=== PATIENT | female | born 1935 | race Caucasian/White ===

== ENCOUNTER 2018-04-13 11:33 | Inpatient (IN) | payer MEDICARE, OTHER ==
[~2018-04-13] VITALS: Ht 165.1 cm; Wt 53.0 kg
[~2018-04-13 11:33] MED LIST: AMIT50TA3 PO; DONE-46 PO; LORA-269 PO; MIRT7.5T11 PO; NITR-79 PO; TRIA0.2585 PO
[2018-04-13] MEDS ORDERED: ondansetron/PF 4mg/2ml inj IV ONE (12:50)
[2018-04-13] MEDS: morphine 4 MG/ML inj SYRINge IV ONE ×2 (13:01→13:05)
[2018-04-13] MEDS ORDERED: morphine 4 MG/ML inj SYRINge IV ONE (13:05)
[2018-04-13 13:19] LABS: BASOPHILS % (AUTO) 0 % (0-1); EOSINOPHILS # (AUTO) 0.3 X10'3 (0-0.9); EOSINOPHILS % (AUTO) 1.8 % (0-6); HEMOGLOBIN 11.4 g/dl (12.0-16.0); LYMPHOCYTES # (AUTO) 0.8 X10'3 (1.1-4.8); LYMPHOCYTES % (AUTO) 5.4 % (21-51); MEAN CORPUSCULAR HEMOGLOBIN 26.6 PG (27.0-31.0); MEAN CORPUSCULAR HGB CONC 32.5 % (33.0-36.5); MEAN PLATELET VOLUME 7.5 FL (7.4-10.4); MONOCYTES # (AUTO) 0.6 X10'3 (0-0.9); MONOCYTES % (AUTO) 4.5 % (2-12); NEUTROPHILS # (AUTO) 12.3 X10'3 (1.8-7.7); NEUTROPHILS % (AUTO) 88.3 % (42-75); PLATELET COUNT 287 X10'3 (140-440); RED BLOOD COUNT 4.27 X10'6 (4.20-5.60); WHITE BLOOD COUNT 13.9 X10'3 (4.5-11.0)
[2018-04-13 13:30] LABS: PARTIAL THROMBOPLASTIN TIME 29 SECONDS (22-32); PROTHROMBIN TIME 10.5 SECONDS (9.0-12.0)
[2018-04-13 13:34] LABS: ALANINE AMINOTRANSFERASE 20 U/L (12-78); ALBUMIN/GLOBULIN RATIO 0.9 (1.1-1.5); ALKALINE PHOSPHATASE 133 IU/L (46-116); ANION GAP 10 (8-16); ASPARTATE AMINO TRANSFERASE 23 U/L (10-37); BILIRUBIN,TOTAL 0.5 MG/DL (0.1-1.0); BLOOD UREA NITROGEN 9 MG/DL (7-18); CALCIUM 9.3 MG/DL (8.5-10.1); CHLORIDE 103 MMOL/L (99-107); GLUCOSE 107 MG/DL (70-104); POTASSIUM 3.7 MMOL/L (3.5-5.1); SODIUM 140 MMOL/L (135-145); TOTAL CARBON DIOXIDE 27.1 MMOL/L (24-32); TOTAL PROTEIN 6.5 G/DL (6.4-8.2); eGFR 53 ML/MIN
[2018-04-13] MEDS ORDERED: morphine 4 MG/ML inj SYRINge IV PRN (14:10)
[2018-04-13] MEDS ORDERED: acetaminophen 325mg tablet PO PRN ×2 (14:35)
[2018-04-13] MEDS ORDERED: magnesium Cl slow-release 64mg tablet PO PRN (14:35)
[2018-04-13] MEDS ORDERED: magnesium 4gm in 100ml NS 100 ML IV PRN (14:35)
[2018-04-13] MEDS ORDERED: morphine 2 MG/ML inj. syringe IV PRN (14:35)
[2018-04-13] MEDS ORDERED: ondansetron/PF 4mg/2ml inj IV PRN (14:35)
[2018-04-13] MEDS ORDERED: potassium Cl 20 mEq SR tablet PO PRN ×2 (14:35)
[2018-04-13] MEDS ORDERED: mag hydrox/Alum hydrox/simeth 30ml oral suspension PO PRN (14:35)
[2018-04-13] MEDS ORDERED: docusate sod 100mg capsule PO PRN (14:35)
[2018-04-13] MEDS ORDERED: potassium Cl 40MEQ/NS 500ml 500 ML IV PRN ×2 (14:35)
[2018-04-13] MEDS ORDERED: magnesium 1gm/100ml D5W IVPB 100 ML IV PRN (14:35)
[2018-04-13] MEDS: normal saline 1000ml 1,000 ML IV SCH (15:18)
[2018-04-13 15:39] LABS: CLARITY,URINE CLEAR (Clear); COLOR,URINE YELLOW (Yellow); GLUCOSE, URINE NEGATIVE (Neg); KETONES,URINE NEGATIVE (Neg); LEUKOCYTE ESTERASE ,URINE NEGATIVE (Neg); NITRITES, URINE NEGATIVE (Neg); OCCULT BLOOD,URINE SMALL (Neg); PROTEIN,URINE NEGATIVE (Neg); UROBILINOGEN,URINE 0.2 E.U/dL (0.2-1.0)
[2018-04-13] MEDS ORDERED: BUSP5TAB3 PO (15:45)
[2018-04-13] MEDS ORDERED: trintellix PO (15:45)
[2018-04-13] MEDS ORDERED: DOXE50CA4 PO (15:45)
[2018-04-13 15:46] LABS: UA COLLECTION TYPE FOLEY CATH
[2018-04-13 15:48] LABS: MUCUS STRANDS FEW /LPF (Neg); SQUAMOUS EPITHELIAL CELL,UR FEW /LPF (FEW)
[2018-04-13 15:49] LABS: BACTERIA,URINE NONE SEEN /HPF (Neg); RBC,URINE 0-2 /HPF (0-2); WBC,URINE 0-4 /HPF (0-4)
[2018-04-13 16:00] VITALS: BP 152/54
[2018-04-13 18:00] VITALS: BP 137/55
[2018-04-13] MEDS: heparin, porcine 5000 units/ml vial SQ SCH (19:33)
[2018-04-13] MEDS: morphine 2 MG/ML inj. syringe IV PRN ×2 (19:34→23:34)
[2018-04-13 22:00] VITALS: BP 135/46
[2018-04-14] VITALS (18 sets, daily range): BP systolic 102–146; BP diastolic 42–71
[2018-04-14] MEDS ORDERED: baclofen 10mg tablet PO PRN (00:45)
[2018-04-14] MEDS: normal saline 1000ml 1,000 ML IV SCH ×3 (03:58→21:55)
[2018-04-14] MEDS: morphine 2 MG/ML inj. syringe IV PRN ×3 (05:02→16:26)
[2018-04-14 05:12] LABS: BASOPHILS % (AUTO) 0 % (0-1); EOSINOPHILS # (AUTO) 0.2 X10'3 (0-0.9); EOSINOPHILS % (AUTO) 2.3 % (0-6); HEMATOCRIT 28.3 % (35.0-45.0); HEMOGLOBIN 9.3 g/dl (12.0-16.0); LYMPHOCYTES # (AUTO) 1.1 X10'3 (1.1-4.8); LYMPHOCYTES % (AUTO) 16.1 % (21-51); MEAN CORPUSCULAR HEMOGLOBIN 26.8 PG (27.0-31.0); MEAN CORPUSCULAR HGB CONC 32.7 % (33.0-36.5); MEAN CORPUSCULAR VOLUME 81.7 FL (78-98); MEAN PLATELET VOLUME 7.7 FL (7.4-10.4); MONOCYTES # (AUTO) 0.6 X10'3 (0-0.9); NEUTROPHILS % (AUTO) 72.6 % (42-75); PLATELET COUNT 227 X10'3 (140-440); RED BLOOD COUNT 3.46 X10'6 (4.20-5.60); RED CELL DISTRIBUTION WIDTH 14.6 % (11.5-14.5); WHITE BLOOD COUNT 6.9 X10'3 (4.5-11.0)
[2018-04-14 05:30] LABS: ALBUMIN 2.2 G/DL (3.4-5.0); ANION GAP 8 (8-16); BLOOD UREA NITROGEN 7 MG/DL (7-18); BUN/CREATININE RATIO 8.1 (6.6-38.0); CALCIUM 8.1 MG/DL (8.5-10.1); CHLORIDE 107 MMOL/L (99-107); CREATININE 0.86 MG/DL (0.40-0.90); GLUCOSE 89 MG/DL (70-104); MAGNESIUM 1.8 MG/DL (1.5-2.4); POTASSIUM 3.9 MMOL/L (3.5-5.1); SODIUM 141 MMOL/L (135-145); TOTAL CARBON DIOXIDE 26.5 MMOL/L (24-32); eGFR 63 ML/MIN
[2018-04-14] MEDS: K and/or MAG REPLACEMENT MC SCH (08:00)
[2018-04-14] MEDS ORDERED: donepezil 5mg tablet PO SCH (08:00)
[2018-04-14] MEDS: heparin, porcine 5000 units/ml vial SQ SCH ×2 (08:00→19:38)
[2018-04-14] MEDS ORDERED: fentaNYL/PF 50MCG/1 ML 2ML syringe ONE (12:44)
[2018-04-14] MEDS ORDERED: ePHEDrine 50MG/ML INJ. ONE (13:09)
[2018-04-14] MEDS ORDERED: propofol inj 20 ML IV ONE (13:09)
[2018-04-14] MEDS ORDERED: BUPIVAcaine/dex-water/PF 7.5 mg/ml 2ml ampul ONE (13:31)
[2018-04-14] MEDS ORDERED: ringers solution, lacted 1,000 ML IV SCH (13:42)
[2018-04-14] MEDS ORDERED: morphine 4 MG/ML inj SYRINge IV PRN ×2 (13:45)
[2018-04-14] MEDS ORDERED: proCHLORperazine 10 MG/2 ml inj IV PRN (13:45)
[2018-04-14] MEDS ORDERED: ondansetron/PF 4mg/2ml inj IV PRN (13:45)
[2018-04-14] MEDS ORDERED: meperidine/PF 25mg/ml syringe IV PRN ×3 (13:45)
[2018-04-14] MEDS ORDERED: ketorolac tromethamine 15mg/ml inj. IV ONE (17:20)
[2018-04-14] MEDS: ceFAZolin 1GM/D5W- ADD-VANTAGE 50 ML IV SCH (17:20)
[2018-04-14] MEDS: HYDROcodone/acetaminophen 10/325mg tab PO PRN (17:20)
[2018-04-14] MEDS: HYDROcodone/acetaminophen 5mg/325mg tablet PO PRN (21:54)
[2018-04-15] VITALS (9 sets, daily range): BP systolic 103–130; BP diastolic 36–50
[2018-04-15] MEDS: ceFAZolin 1GM/D5W- ADD-VANTAGE 50 ML IV SCH (00:36)
[2018-04-15] MEDS: HYDROcodone/acetaminophen 10/325mg tab PO PRN ×4 (04:09→19:54)
[2018-04-15 06:02] LABS: BASOPHILS % (AUTO) 0.2 % (0-1); EOSINOPHILS # (AUTO) 0.1 X10'3 (0-0.9); EOSINOPHILS % (AUTO) 2.3 % (0-6); HEMOGLOBIN 7.1 g/dl (12.0-16.0); LYMPHOCYTES # (AUTO) 0.8 X10'3 (1.1-4.8); LYMPHOCYTES % (AUTO) 13.9 % (21-51); MEAN CORPUSCULAR HEMOGLOBIN 26.9 PG (27.0-31.0); MEAN CORPUSCULAR HGB CONC 33.3 % (33.0-36.5); MEAN CORPUSCULAR VOLUME 80.8 FL (78-98); MEAN PLATELET VOLUME 7.8 FL (7.4-10.4); MONOCYTES # (AUTO) 0.5 X10'3 (0-0.9); MONOCYTES % (AUTO) 8.5 % (2-12); NEUTROPHILS # (AUTO) 4.6 X10'3 (1.8-7.7); NEUTROPHILS % (AUTO) 75.1 % (42-75); PLATELET COUNT 216 X10'3 (140-440); RED BLOOD COUNT 2.64 X10'6 (4.20-5.60); WHITE BLOOD COUNT 6.1 X10'3 (4.5-11.0)
[2018-04-15 06:13] LABS: HEMATOCRIT 21.4 % (35.0-45.0)
[2018-04-15 06:17] LABS: ALBUMIN 1.9 G/DL (3.4-5.0); ANION GAP 5 (8-16); BLOOD UREA NITROGEN 9 MG/DL (7-18); CALCIUM 8.1 MG/DL (8.5-10.1); CHLORIDE 108 MMOL/L (99-107); GLUCOSE 110 MG/DL (70-104); MAGNESIUM 1.7 MG/DL (1.5-2.4); POTASSIUM 3.9 MMOL/L (3.5-5.1); SODIUM 140 MMOL/L (135-145); TOTAL CARBON DIOXIDE 27.3 MMOL/L (24-32); eGFR 60 ML/MIN
[2018-04-15] MEDS: heparin, porcine 5000 units/ml vial SQ SCH ×2 (08:00→19:52)
[2018-04-15] MEDS: K and/or MAG REPLACEMENT MC SCH (08:00)
[2018-04-15] MEDS: normal saline 1000ml 1,000 ML IV SCH (14:57)
[2018-04-15] MEDS: morphine 2 MG/ML inj. syringe IV PRN (21:56)
[2018-04-16] MEDS: HYDROcodone/acetaminophen 10/325mg tab PO PRN ×2 (02:54→09:05)
[2018-04-16] MEDS: normal saline 1000ml 1,000 ML IV SCH (02:56)
[2018-04-16] MEDS: morphine 2 MG/ML inj. syringe IV PRN ×2 (05:48→21:41)
[2018-04-16 06:00] VITALS: BP 115/49
[2018-04-16] MEDS: K and/or MAG REPLACEMENT MC SCH (08:30)
[2018-04-16] MEDS: heparin, porcine 5000 units/ml vial SQ SCH ×2 (09:07→20:00)
[2018-04-16 09:11] LABS: BASOPHILS % (AUTO) 0.3 % (0-1); EOSINOPHILS # (AUTO) 0.3 X10'3 (0-0.9); EOSINOPHILS % (AUTO) 4.8 % (0-6); HEMATOCRIT 24.4 % (35.0-45.0); LYMPHOCYTES # (AUTO) 1.1 X10'3 (1.1-4.8); LYMPHOCYTES % (AUTO) 20.2 % (21-51); MEAN CORPUSCULAR HEMOGLOBIN 26.7 PG (27.0-31.0); MEAN CORPUSCULAR HGB CONC 32.7 % (33.0-36.5); MEAN CORPUSCULAR VOLUME 81.7 FL (78-98); MEAN PLATELET VOLUME 7.5 FL (7.4-10.4); MONOCYTES # (AUTO) 0.4 X10'3 (0-0.9); MONOCYTES % (AUTO) 6.3 % (2-12); NEUTROPHILS # (AUTO) 3.8 X10'3 (1.8-7.7); NEUTROPHILS % (AUTO) 68.4 % (42-75); PLATELET COUNT 247 X10'3 (140-440); RED BLOOD COUNT 2.99 X10'6 (4.20-5.60); RED CELL DISTRIBUTION WIDTH 15.8 % (11.5-14.5); WHITE BLOOD COUNT 5.6 X10'3 (4.5-11.0)
[2018-04-16 09:28] LABS: ALBUMIN 1.9 G/DL (3.4-5.0); ANION GAP 5 (8-16); BLOOD UREA NITROGEN 8 MG/DL (7-18); BUN/CREATININE RATIO 11.6 (6.6-38.0); CALCIUM 8.1 MG/DL (8.5-10.1); CHLORIDE 109 MMOL/L (99-107); CREATININE 0.69 MG/DL (0.40-0.90); GLUCOSE 124 MG/DL (70-104); MAGNESIUM 1.7 MG/DL (1.5-2.4); POTASSIUM 3.3 MMOL/L (3.5-5.1); SODIUM 141 MMOL/L (135-145); TOTAL CARBON DIOXIDE 26.8 MMOL/L (24-32); eGFR 81 ML/MIN
[2018-04-16 10:00] VITALS: BP 118/56
[2018-04-16] MEDS: HYDROcodone/acetaminophen 5mg/325mg tablet PO PRN ×2 (15:38→19:59)
[2018-04-16 18:00] VITALS: BP 105/54
[2018-04-16 22:00] VITALS: BP 127/48
[2018-04-17] VITALS (10 sets, daily range): BP systolic 100–185; BP diastolic 47–72
[2018-04-17] MEDS: HYDROcodone/acetaminophen 5mg/325mg tablet PO PRN ×4 (02:40→20:37)
[2018-04-17 05:58] LABS: BASOPHILS % (AUTO) 0.5 % (0-1); EOSINOPHILS # (AUTO) 0.3 X10'3 (0-0.9); EOSINOPHILS % (AUTO) 5.6 % (0-6); HEMOGLOBIN 7.3 g/dl (12.0-16.0); LYMPHOCYTES # (AUTO) 1.1 X10'3 (1.1-4.8); LYMPHOCYTES % (AUTO) 19.6 % (21-51); MEAN CORPUSCULAR HEMOGLOBIN 26.9 PG (27.0-31.0); MEAN CORPUSCULAR HGB CONC 33.2 % (33.0-36.5); MEAN CORPUSCULAR VOLUME 81.1 FL (78-98); MEAN PLATELET VOLUME 7.4 FL (7.4-10.4); MONOCYTES # (AUTO) 0.4 X10'3 (0-0.9); MONOCYTES % (AUTO) 7.3 % (2-12); NEUTROPHILS # (AUTO) 3.6 X10'3 (1.8-7.7); PLATELET COUNT 255 X10'3 (140-440); RED CELL DISTRIBUTION WIDTH 15.4 % (11.5-14.5); WHITE BLOOD COUNT 5.4 X10'3 (4.5-11.0)
[2018-04-17 06:05] LABS: HEMATOCRIT 21.9 % (35.0-45.0)
[2018-04-17 06:18] LABS: ALBUMIN 1.8 G/DL (3.4-5.0); ANION GAP 7 (8-16); BLOOD UREA NITROGEN 8 MG/DL (7-18); BUN/CREATININE RATIO 11.3 (6.6-38.0); CALCIUM 8.3 MG/DL (8.5-10.1); CHLORIDE 111 MMOL/L (99-107); CREATININE 0.71 MG/DL (0.40-0.90); GLUCOSE 94 MG/DL (70-104); MAGNESIUM 1.6 MG/DL (1.5-2.4); POTASSIUM 3.6 MMOL/L (3.5-5.1); SODIUM 143 MMOL/L (135-145); TOTAL CARBON DIOXIDE 25.3 MMOL/L (24-32); eGFR 78 ML/MIN
[2018-04-17] MEDS: normal saline 1000ml 1,000 ML IV SCH ×2 (06:32→11:54)
[2018-04-17] MEDS: K and/or MAG REPLACEMENT MC SCH (08:00)
[2018-04-17] MEDS: heparin, porcine 5000 units/ml vial SQ SCH (08:57)
[2018-04-17] MEDS ORDERED: LORazepam 1 MG tablet PO PRN (09:40)
[2018-04-17] MEDS ORDERED: DONE5TAB7 PO (11:07)
[2018-04-17] MEDS ORDERED: LORA0.5T PO (11:07)
[2018-04-17] MEDS ORDERED: BUSP10TA11 PO (11:07)
[2018-04-17] MEDS ORDERED: DOXE25CA3 (11:07)
[2018-04-17] MEDS ORDERED: non-formulary drug (Buspirone Hcl* (Buspar*) 1 TAB) PO PRN (13:40)
[2018-04-17] MEDS ORDERED: LORazepam 0.5 MG tablet PO PRN (13:40)
[2018-04-17] MEDS ORDERED: busPIRone 5mg tablet PO PRN (13:45)
[2018-04-17] MEDS ORDERED: magnesium hydroxide 30ml (MOM) UD suspension PO PRN (18:05)
[2018-04-17] MEDS ORDERED: busPIRone 5mg tablet PO SCH (21:00)
[2018-04-17] MEDS ORDERED: TRIAZOLAM PO SCH (21:00)
[2018-04-17] MEDS ORDERED: doxepin 25mg capsule PO SCH (21:00)
[2018-04-17] MEDS ORDERED: temazepam 15mg capsule PO SCH (21:00)
[2018-04-18] MEDS: HYDROcodone/acetaminophen 5mg/325mg tablet PO PRN ×4 (00:27→13:01)
[2018-04-18 04:59] LABS: BASOPHILS % (AUTO) 0.5 % (0-1); EOSINOPHILS # (AUTO) 0.3 X10'3 (0-0.9); EOSINOPHILS % (AUTO) 4.7 % (0-6); HEMATOCRIT 30.2 % (35.0-45.0); HEMOGLOBIN 10.3 g/dl (12.0-16.0); LYMPHOCYTES # (AUTO) 1.2 X10'3 (1.1-4.8); MEAN CORPUSCULAR HEMOGLOBIN 27.8 PG (27.0-31.0); MEAN CORPUSCULAR VOLUME 81.9 FL (78-98); MONOCYTES # (AUTO) 0.5 X10'3 (0-0.9); MONOCYTES % (AUTO) 8.7 % (2-12); NEUTROPHILS # (AUTO) 3.8 X10'3 (1.8-7.7); NEUTROPHILS % (AUTO) 66.1 % (42-75); PLATELET COUNT 282 X10'3 (140-440); RED BLOOD COUNT 3.68 X10'6 (4.20-5.60); RED CELL DISTRIBUTION WIDTH 15.6 % (11.5-14.5); WHITE BLOOD COUNT 5.8 X10'3 (4.5-11.0)
[2018-04-18 05:36] LABS: ANION GAP 10 (8-16); BLOOD UREA NITROGEN 8 MG/DL (7-18); BUN/CREATININE RATIO 11.4 (6.6-38.0); CALCIUM 8.3 MG/DL (8.5-10.1); CHLORIDE 111 MMOL/L (99-107); GLUCOSE 84 MG/DL (70-104); MAGNESIUM 1.6 MG/DL (1.5-2.4); POTASSIUM 3.1 MMOL/L (3.5-5.1); SODIUM 146 MMOL/L (135-145); TOTAL CARBON DIOXIDE 25.3 MMOL/L (24-32); eGFR 80 ML/MIN
[2018-04-18 06:00] VITALS: BP 163/62
[2018-04-18] MEDS ORDERED: donepezil 5mg tablet PO SCH (08:00)
[2018-04-18] MEDS ORDERED: voritoxetine HBr tablet 5 MG TABLET PO SCH (08:00)
[2018-04-18] MEDS ORDERED: TRINTELLIX 5 MG PO SCH (08:00)
[2018-04-18] MEDS ORDERED: magnesium Cl slow-release 64mg tablet PO PRN (09:10)
[2018-04-18] MEDS ORDERED: potassium Cl 40MEQ/NS 500ml 500 ML IV PRN ×2 (09:10)
[2018-04-18] MEDS ORDERED: potassium Cl 20 mEq SR tablet PO PRN (09:10)
[2018-04-18] MEDS: potassium Cl 20 mEq SR tablet PO PRN ×2 (09:17→15:27)
[2018-04-18 10:00] VITALS: BP 97/64
== END 2018-04-18 15:45 | DRG 481 ==
LOC: ER 11:33 → ED HOLD 14:34 → ORTHO 4S 15:55
PROVIDERS: ADMIT Internal Medicine; ATTEND Family Medicine
PROC: 0QS636Z Reposition Right Upper Femur with Intramedullary Internal Fixation Device, Percutaneous Approach (ICD-10-PCS; principal; 2018-04-14 12:34)
PROC: 30233N1 Transfusion of Nonautologous Red Blood Cells into Peripheral Vein, Percutaneous Approach (ICD-10-PCS; 2018-04-15)
PROC: 30233N1 Transfusion of Nonautologous Red Blood Cells into Peripheral Vein, Percutaneous Approach (ICD-10-PCS; 2018-04-17)
DX: S72.141A Displaced intertrochanteric fracture of right femur, initial encounter for closed fracture (principal); D62 Acute posthemorrhagic anemia; E46 Unspecified protein-calorie malnutrition; Z68.1 Body mass index [BMI] 19.9 or less, adult; F32.9 Major depressive disorder, single episode, unspecified; Z60.2 Problems related to living alone; F41.1 Generalized anxiety disorder; G47.00 Insomnia, unspecified; M16.0 Bilateral primary osteoarthritis of hip; M47.816 Spondylosis without myelopathy or radiculopathy, lumbar region; Z66 Do not resuscitate; W18.39XA Other fall on same level, initial encounter; Z79.899 Other long term (current) drug therapy; Y93.01 Activity, walking, marching and hiking; Y92.098 Other place in other non-institutional residence as the place of occurrence of the external cause; Y99.8 Other external cause status
CPT/HCPCS: 27495; 36415; 71045; 73502; 73552; 76001; 80048; 80053; 81001; 83735; 85025; 85610; 85730; 86885; 86900; 86901; 86920; 87070; 93005; 97110; 97116; 97162; 97530; A4315; A6212; A6222; A6255; A6257; A6449; A6454; A7000; J0690; J1644; J1885; J2270; J2405; J2704; J3010; J3490; J7030; J7120; P9016

== ENCOUNTER 2018-06-27 11:48 | Inpatient (IN) | payer MEDICARE, OTHER ==
[~2018-06-27] VITALS: Ht 165.1 cm; Wt 56.8 kg
[~2018-06-27 11:48] MED LIST changes: -AMIT50TA3 PO; +BUSP10TA11 PO; -DONE-46 PO; +DONE5TAB7 PO; +DOXE25CA3; -LORA-269 PO; +LORA0.5T PO; -MIRT7.5T11 PO; -NITR-79 PO; +trintellix PO
[2018-06-27] MEDS ORDERED: morphine 2 MG/ML inj. syringe IV ONE (13:10)
[2018-06-27] MEDS ORDERED: ondansetron/PF 4mg/2ml inj IV ONE (13:10)
[2018-06-27] MEDS ORDERED: VORT5TAB PO (14:12)
[2018-06-27 14:29] LABS: INR 1.1 INR; PROTHROMBIN TIME 11.4 SECONDS (9.0-12.0)
[2018-06-27 14:31] LABS: ALANINE AMINOTRANSFERASE 15 U/L (12-78); ALBUMIN 2.7 G/DL (3.4-5.0); ALBUMIN/GLOBULIN RATIO 0.8 (1.1-1.5); ALKALINE PHOSPHATASE 132 IU/L (46-116); ANION GAP 8 (8-16); ASPARTATE AMINO TRANSFERASE 20 U/L (10-37); BILIRUBIN,TOTAL 0.4 MG/DL (0.1-1.0); BLOOD UREA NITROGEN 10 MG/DL (7-18); BUN/CREATININE RATIO 13.2 (6.6-38.0); CALCIUM 8.9 MG/DL (8.5-10.1); CHLORIDE 103 MMOL/L (99-107); CREATININE 0.76 MG/DL (0.40-0.90); GLUCOSE 97 MG/DL (70-104); POTASSIUM 3.8 MMOL/L (3.5-5.1); SODIUM 140 MMOL/L (135-145); TOTAL CARBON DIOXIDE 28.7 MMOL/L (24-32); TOTAL PROTEIN 6.2 G/DL (6.4-8.2); eGFR 73 ML/MIN
[2018-06-27 14:49] LABS: BASOPHILS % (AUTO) 0.2 % (0-1); EOSINOPHILS # (AUTO) 0.1 X10'3 (0-0.9); EOSINOPHILS % (AUTO) 0.9 % (0-6); HEMATOCRIT 36.1 % (35.0-45.0); HEMOGLOBIN 12.3 g/dl (12.0-16.0); LYMPHOCYTES # (AUTO) 1.1 X10'3 (1.1-4.8); LYMPHOCYTES % (AUTO) 10.3 % (21-51); MEAN CORPUSCULAR HEMOGLOBIN 29.3 PG (27.0-31.0); MEAN PLATELET VOLUME 7.7 FL (7.4-10.4); MONOCYTES # (AUTO) 0.5 X10'3 (0-0.9); MONOCYTES % (AUTO) 4.9 % (2-12); NEUTROPHILS # (AUTO) 8.5 X10'3 (1.8-7.7); NEUTROPHILS % (AUTO) 83.7 % (42-75); PLATELET COUNT 324 X10'3 (140-440); RED CELL DISTRIBUTION WIDTH 15.1 % (11.5-14.5); WHITE BLOOD COUNT 10.2 X10'3 (4.5-11.0)
[2018-06-27] MEDS ORDERED: morphine 2 MG/ML inj. syringe IV PRN (15:10)
[2018-06-27] MEDS ORDERED: HYDROcodone/acetaminophen 5mg/325mg tablet PO PRN (15:10)
[2018-06-27] MEDS ORDERED: acetaminophen 325mg tablet PO PRN (15:10)
[2018-06-27] MEDS ORDERED: ondansetron/PF 4mg/2ml inj IV PRN (15:10)
[2018-06-27] MEDS ORDERED: magnesium hydroxide 30ml (MOM) UD suspension PO PRN (15:10)
[2018-06-27] MEDS ORDERED: mag hydrox/Alum hydrox/simeth 30ml oral suspension PO PRN (15:10)
[2018-06-27 16:04] LABS: CLARITY,URINE CLOUDY (Clear); COLOR,URINE YELLOW (Yellow); GLUCOSE, URINE NEGATIVE (Neg); KETONES,URINE TRACE mg/dl (Neg); LEUKOCYTE ESTERASE ,URINE MODERATE (Neg); NITRITES, URINE POSITIVE (Neg); OCCULT BLOOD,URINE MODERATE (Neg); PROTEIN,URINE NEGATIVE (Neg); UROBILINOGEN,URINE 0.2 E.U/dL (0.2-1.0)
[2018-06-27 16:15] LABS: UA COLLECTION TYPE FOLEY CATH
[2018-06-27 16:23] LABS: BACTERIA,URINE 2+ /HPF (Neg); RBC,URINE 0-2 /HPF (0-2); SQUAMOUS EPITHELIAL CELL,UR FEW /LPF (FEW); WBC,URINE 30-50 /HPF (0-4)
[2018-06-27 16:24] LABS: WBC CLUMPS,URINE MODERATE /HPF (NEGATIVE)
[2018-06-27] MEDS: morphine 2 MG/ML inj. syringe IV PRN (16:54)
[2018-06-27 17:20] VITALS: BP 156/75
[2018-06-27 19:00] VITALS: BP 154/60
[2018-06-27] MEDS: heparin, porcine 5000 units/ml vial SQ SCH (19:09)
[2018-06-27] MEDS: HYDROcodone/acetaminophen 10/325mg tab PO PRN (19:09)
[2018-06-27] MEDS: temazepam 15mg capsule PO SCH (21:26)
[2018-06-27] MEDS: busPIRone 5mg tablet PO PRN (21:31)
[2018-06-27 22:00] VITALS: BP 135/51
[2018-06-28 02:00] VITALS: BP 129/59
[2018-06-28] MEDS: HYDROcodone/acetaminophen 10/325mg tab PO PRN ×5 (05:39→20:06)
[2018-06-28] MEDS: LORazepam 0.5 MG tablet PO PRN (05:41)
[2018-06-28 05:57] LABS: BASOPHILS % (AUTO) 0.2 % (0-1); EOSINOPHILS # (AUTO) 0.2 X10'3 (0-0.9); EOSINOPHILS % (AUTO) 2.8 % (0-6); HEMATOCRIT 36.8 % (35.0-45.0); LYMPHOCYTES # (AUTO) 1.3 X10'3 (1.1-4.8); LYMPHOCYTES % (AUTO) 17.7 % (21-51); MEAN CORPUSCULAR HEMOGLOBIN 28.1 PG (27.0-31.0); MEAN CORPUSCULAR HGB CONC 32.6 % (33.0-36.5); MEAN CORPUSCULAR VOLUME 86.1 FL (78-98); MEAN PLATELET VOLUME 7.3 FL (7.4-10.4); MONOCYTES # (AUTO) 0.5 X10'3 (0-0.9); MONOCYTES % (AUTO) 7.3 % (2-12); NEUTROPHILS # (AUTO) 5.4 X10'3 (1.8-7.7); PLATELET COUNT 300 X10'3 (140-440); RED BLOOD COUNT 4.27 X10'6 (4.20-5.60); RED CELL DISTRIBUTION WIDTH 16.3 % (11.5-14.5); WHITE BLOOD COUNT 7.5 X10'3 (4.5-11.0)
[2018-06-28 06:00] VITALS: BP 148/68
[2018-06-28 06:05] LABS: ALBUMIN 2.5 G/DL (3.4-5.0); ANION GAP 8 (8-16); BLOOD UREA NITROGEN 7 MG/DL (7-18); BUN/CREATININE RATIO 9.1 (6.6-38.0); CALCIUM 8.8 MG/DL (8.5-10.1); CHLORIDE 106 MMOL/L (99-107); CREATININE 0.77 MG/DL (0.40-0.90); GLUCOSE 89 MG/DL (70-104); POTASSIUM 3.7 MMOL/L (3.5-5.1); SODIUM 142 MMOL/L (135-145); TOTAL CARBON DIOXIDE 28.3 MMOL/L (24-32); eGFR 71 ML/MIN
[2018-06-28] MEDS: donepezil 5mg tablet PO SCH (09:19)
[2018-06-28] MEDS: morphine 2 MG/ML inj. syringe IV PRN (09:21)
[2018-06-28] MEDS: heparin, porcine 5000 units/ml vial SQ SCH ×2 (09:23→20:06)
[2018-06-28 10:00] VITALS: BP 159/68
[2018-06-28] MEDS: CefTRIAXone/D5W-Rocephin 1gm 50 ML IV SCH (10:44)
[2018-06-28 18:00] VITALS: BP 138/53
[2018-06-28] MEDS: temazepam 15mg capsule PO SCH (20:06)
[2018-06-28] MEDS: busPIRone 5mg tablet PO PRN (20:06)
[2018-06-28 22:00] VITALS: BP 118/56
[2018-06-29] VITALS (19 sets, daily range): BP systolic 107–166; BP diastolic 40–91
[2018-06-29] MEDS: HYDROcodone/acetaminophen 10/325mg tab PO PRN ×4 (05:52→19:58)
[2018-06-29 06:51] LABS: ALBUMIN 2.2 G/DL (3.4-5.0); ANION GAP 6 (8-16); BLOOD UREA NITROGEN 8 MG/DL (7-18); BUN/CREATININE RATIO 11.9 (6.6-38.0); CALCIUM 8.5 MG/DL (8.5-10.1); CHLORIDE 105 MMOL/L (99-107); CREATININE 0.67 MG/DL (0.40-0.90); GLUCOSE 88 MG/DL (70-104); POTASSIUM 3.7 MMOL/L (3.5-5.1); SODIUM 140 MMOL/L (135-145); TOTAL CARBON DIOXIDE 28.6 MMOL/L (24-32); eGFR 84 ML/MIN
[2018-06-29] MEDS ORDERED: vancomycin 1,000mg inj ONE (06:57)
[2018-06-29] MEDS ORDERED: ringers solution, lacted 1,000 ML IV SCH (06:58)
[2018-06-29] MEDS ORDERED: ondansetron/PF 4mg/2ml inj IV PRN (07:00)
[2018-06-29] MEDS ORDERED: morphine 4 MG/ML inj SYRINge IV PRN ×2 (07:00)
[2018-06-29] MEDS ORDERED: hydrALAZINE 20mg/ml inj. IV PRN (07:00)
[2018-06-29] MEDS ORDERED: fentaNYL/PF 50MCG/1 ML 2ML syringe IV PRN ×2 (07:00)
[2018-06-29] MEDS ORDERED: labetalol 20mg/4ml (5mg/ml) syringe IV PRN (07:00)
[2018-06-29 07:07] LABS: BASOPHILS % (AUTO) 0.2 % (0-1); EOSINOPHILS # (AUTO) 0.3 X10'3 (0-0.9); EOSINOPHILS % (AUTO) 4.2 % (0-6); HEMATOCRIT 36.3 % (35.0-45.0); HEMOGLOBIN 11.8 g/dl (12.0-16.0); LYMPHOCYTES # (AUTO) 1.4 X10'3 (1.1-4.8); LYMPHOCYTES % (AUTO) 18.9 % (21-51); MEAN CORPUSCULAR HEMOGLOBIN 28.1 PG (27.0-31.0); MEAN CORPUSCULAR HGB CONC 32.4 % (33.0-36.5); MEAN CORPUSCULAR VOLUME 86.6 FL (78-98); MEAN PLATELET VOLUME 7.7 FL (7.4-10.4); MONOCYTES # (AUTO) 0.5 X10'3 (0-0.9); MONOCYTES % (AUTO) 6.9 % (2-12); NEUTROPHILS # (AUTO) 5.3 X10'3 (1.8-7.7); NEUTROPHILS % (AUTO) 69.8 % (42-75); PLATELET COUNT 298 X10'3 (140-440); RED BLOOD COUNT 4.19 X10'6 (4.20-5.60); RED CELL DISTRIBUTION WIDTH 16.3 % (11.5-14.5); WHITE BLOOD COUNT 7.6 X10'3 (4.5-11.0)
[2018-06-29] MEDS ORDERED: tranexamic acid inj. 1,000 MG in normal saline 100ml IV soln 90 ML IV ONE (07:15)
[2018-06-29] MEDS ORDERED: LIDOcaine 1% (10mg/ml) 2ml vial ONE (07:16)
[2018-06-29] MEDS ORDERED: fentaNYL/PF 50MCG/1 ML 2ML syringe ONE (07:22)
[2018-06-29] MEDS ORDERED: MIDAZolam 5mg/5ml vial ONE (07:22)
[2018-06-29] MEDS ORDERED: propofol inj 20 ML IV ONE (07:44)
[2018-06-29] MEDS ORDERED: ceFAZolin 1GM/D5W- ADD-VANTAGE 50 ML IV ONE (08:00)
[2018-06-29] MEDS: donepezil 5mg tablet PO SCH (08:00)
[2018-06-29] MEDS: heparin, porcine 5000 units/ml vial SQ SCH ×2 (08:00→19:57)
[2018-06-29] MEDS ORDERED: potassium cl 20mEq in 1/2 NS 1,000 ML IV SCH (11:45)
[2018-06-29] MEDS: potassium cl 20mEq in 1/2 NS 1,000 ML IV SCH ×2 (11:55→17:53)
[2018-06-29] MEDS: CefTRIAXone/D5W-Rocephin 1gm 50 ML IV SCH (11:56)
[2018-06-29] MEDS: morphine 2 MG/ML inj. syringe IV PRN ×2 (13:56→17:53)
[2018-06-29] MEDS: levoFLOXACIN-Levaquin 500mg/D5 100 ML IV SCH (14:51)
[2018-06-29] MEDS ORDERED: ketorolac tromethamine 15mg/ml inj. IV ONE (15:20)
[2018-06-29] MEDS: temazepam 15mg capsule PO SCH (19:58)
[2018-06-29] MEDS: LORazepam 0.5 MG tablet PO PRN (20:44)
[2018-06-30] MEDS: HYDROcodone/acetaminophen 10/325mg tab PO PRN ×5 (01:38→17:45)
[2018-06-30 01:58] VITALS: BP 145/88
[2018-06-30 06:00] VITALS: BP 126/62
[2018-06-30] MEDS: morphine 2 MG/ML inj. syringe IV PRN ×2 (06:50→15:07)
[2018-06-30] MEDS: heparin, porcine 5000 units/ml vial SQ SCH ×2 (07:17→20:56)
[2018-06-30] MEDS: donepezil 5mg tablet PO SCH (07:17)
[2018-06-30] MEDS: levoFLOXACIN-Levaquin 500mg/D5 100 ML IV SCH (07:17)
[2018-06-30 08:09] LABS: BASOPHILS % (AUTO) 0.3 % (0-1); EOSINOPHILS # (AUTO) 0.2 X10'3 (0-0.9); HEMATOCRIT 33.2 % (35.0-45.0); HEMOGLOBIN 10.9 g/dl (12.0-16.0); LYMPHOCYTES # (AUTO) 0.8 X10'3 (1.1-4.8); LYMPHOCYTES % (AUTO) 12.4 % (21-51); MEAN CORPUSCULAR HEMOGLOBIN 28.2 PG (27.0-31.0); MEAN CORPUSCULAR HGB CONC 32.8 % (33.0-36.5); MEAN CORPUSCULAR VOLUME 85.9 FL (78-98); MEAN PLATELET VOLUME 7.4 FL (7.4-10.4); MONOCYTES # (AUTO) 0.4 X10'3 (0-0.9); MONOCYTES % (AUTO) 6.1 % (2-12); NEUTROPHILS # (AUTO) 5.3 X10'3 (1.8-7.7); NEUTROPHILS % (AUTO) 78.2 % (42-75); PLATELET COUNT 297 X10'3 (140-440); RED BLOOD COUNT 3.87 X10'6 (4.20-5.60); RED CELL DISTRIBUTION WIDTH 15.7 % (11.5-14.5); WHITE BLOOD COUNT 6.8 X10'3 (4.5-11.0)
[2018-06-30 08:37] LABS: ANION GAP 8 (8-16); BLOOD UREA NITROGEN 4 MG/DL (7-18); BUN/CREATININE RATIO 5.8 (6.6-38.0); CALCIUM 8.4 MG/DL (8.5-10.1); CHLORIDE 107 MMOL/L (99-107); CREATININE 0.69 MG/DL (0.40-0.90); GLUCOSE 96 MG/DL (70-104); SODIUM 139 MMOL/L (135-145); TOTAL CARBON DIOXIDE 24.1 MMOL/L (24-32); eGFR 81 ML/MIN
[2018-06-30 10:00] VITALS: BP 134/53
[2018-06-30] MEDS: LORazepam 0.5 MG tablet PO PRN (10:10)
[2018-06-30] MEDS: potassium cl 20mEq in 1/2 NS 1,000 ML IV SCH ×2 (11:32→23:23)
[2018-06-30 14:00] VITALS: BP 139/67
[2018-06-30] MEDS ORDERED: HYDROmorphone 1 mg/ml syringe IV PRN (16:00)
[2018-06-30 18:00] VITALS: BP 117/59
[2018-06-30] MEDS: temazepam 15mg capsule PO SCH (20:57)
[2018-06-30 22:00] VITALS: BP 120/57
[2018-07-01] MEDS: HYDROcodone/acetaminophen 10/325mg tab PO PRN ×3 (00:53→08:50)
[2018-07-01 05:44] LABS: BASOPHILS % (AUTO) 0.2 % (0-1); EOSINOPHILS # (AUTO) 0.3 X10'3 (0-0.9); EOSINOPHILS % (AUTO) 4.3 % (0-6); HEMATOCRIT 29.4 % (35.0-45.0); HEMOGLOBIN 9.5 g/dl (12.0-16.0); LYMPHOCYTES # (AUTO) 1.2 X10'3 (1.1-4.8); LYMPHOCYTES % (AUTO) 17.2 % (21-51); MEAN CORPUSCULAR HEMOGLOBIN 27.8 PG (27.0-31.0); MEAN CORPUSCULAR HGB CONC 32.4 % (33.0-36.5); MEAN CORPUSCULAR VOLUME 85.7 FL (78-98); MONOCYTES # (AUTO) 0.6 X10'3 (0-0.9); MONOCYTES % (AUTO) 8.6 % (2-12); NEUTROPHILS # (AUTO) 4.7 X10'3 (1.8-7.7); NEUTROPHILS % (AUTO) 69.7 % (42-75); PLATELET COUNT 267 X10'3 (140-440); RED BLOOD COUNT 3.43 X10'6 (4.20-5.60); RED CELL DISTRIBUTION WIDTH 16.7 % (11.5-14.5); WHITE BLOOD COUNT 6.8 X10'3 (4.5-11.0)
[2018-07-01 06:00] VITALS: BP 132/55
[2018-07-01 06:02] LABS: ALBUMIN 1.8 G/DL (3.4-5.0); ANION GAP 7 (8-16); BLOOD UREA NITROGEN 3 MG/DL (7-18); BUN/CREATININE RATIO 4.3 (6.6-38.0); CALCIUM 8.3 MG/DL (8.5-10.1); CHLORIDE 106 MMOL/L (99-107); CREATININE 0.69 MG/DL (0.40-0.90); GLUCOSE 85 MG/DL (70-104); SODIUM 139 MMOL/L (135-145); TOTAL CARBON DIOXIDE 25.7 MMOL/L (24-32); eGFR 81 ML/MIN
[2018-07-01] MEDS: donepezil 5mg tablet PO SCH (07:35)
[2018-07-01] MEDS: heparin, porcine 5000 units/ml vial SQ SCH (07:36)
[2018-07-01] MEDS: LORazepam 0.5 MG tablet PO PRN (07:40)
[2018-07-01 09:54] VITALS: BP 136/61
[2018-07-01] MEDS ORDERED: levoFLOXACIN 500mg tablet PO SCH (11:00)
== END 2018-07-01 13:30 | DRG 470 ==
LOC: ER 11:48 → ED HOLD 15:08 → ORTHO 4S 17:10
PROVIDERS: ADMIT Internal Medicine; ATTEND Hospitalist
PROC: 0QH704Z Insertion of Internal Fixation Device into Left Upper Femur, Open Approach (ICD-10-PCS; 2018-06-29)
PROC: 0SRS019 Replacement of Left Hip Joint, Femoral Surface with Metal Synthetic Substitute, Cemented, Open Approach (ICD-10-PCS; principal; 2018-06-29 07:16)
DX: M84.452A Pathological fracture, left femur, initial encounter for fracture (principal); N39.0 Urinary tract infection, site not specified; F32.9 Major depressive disorder, single episode, unspecified; F41.9 Anxiety disorder, unspecified; B96.5 Pseudomonas (aeruginosa) (mallei) (pseudomallei) as the cause of diseases classified elsewhere; Z60.2 Problems related to living alone; W01.0XXA Fall on same level from slipping, tripping and stumbling without subsequent striking against object, initial encounter; Z98.891 History of uterine scar from previous surgery; Z79.899 Other long term (current) drug therapy; Y93.89 Activity, other specified; Y92.098 Other place in other non-institutional residence as the place of occurrence of the external cause; Y99.8 Other external cause status
CPT/HCPCS: 36415; 71045; 72170; 73502; 80048; 80053; 81001; 85025; 85610; 86885; 86900; 86901; 87070; 87077; 87088; 87186; 93005; 96374; 96375; 97116; 97162; 97530; 99285; A6455; A7000; C1713; C1776; G0378; J0690; J0696; J1644; J1885; J1956; J2250; J2270; J2405; J2704; J3010; J3370; J3490; J7030; J7120